=== PATIENT | female | born 1960 | race Caucasian/White ===

== ENCOUNTER 2018-01-23 10:29 | Emergency (ER) | payer MEDICAID ==
[~2018-01-23] VITALS: Ht 152.4 cm; Wt 71.2 kg
[2018-01-23 10:33] VITALS: Ht 152.4 cm; Wt 71.2 kg
[2018-01-23 12:23] VITALS: BP 134/72
== END 2018-01-23 12:23 | disposition home or self-care (01) ==
LOC: ED 10:29
DX: J02.0 Streptococcal pharyngitis (principal); M79.1 Myalgia